=== PATIENT | male | born 1960 | race Caucasian/White ===

== ENCOUNTER 2017-11-14 09:30 | Inpatient (IN) | payer OTHER ==
[~2017-11-14] VITALS: Ht 172.7 cm; Wt 77.1 kg
[2017-11-14] MEDS ORDERED: HYDROCHLOROTHIA25 MG PO (11:08)
[2017-11-14] MEDS ORDERED: OMEPRAZOLE20 M1 PO (11:08)
[2017-11-14] MEDS ORDERED: ENALAPRIL MALEA20 MG PO (11:08)
[2017-11-14] MEDS ORDERED: SIMVASTATIN20 MG PO (11:08)
[2017-11-14] MEDS ORDERED: FENOFIBRATE134 MG PO (11:09)
[2017-11-14] MEDS ORDERED: ZANTAC300 MG PO (11:09)
[2017-11-14] MEDS ORDERED: SULINDAC200 MG PO (11:09)
[2017-11-14] MEDS ORDERED: CHLORZOXAZONE PO (11:10)
[2017-11-14] MEDS ORDERED: PROZAC20 MG PO (11:10)
[2017-11-14] MEDS ORDERED: ELAVIL PO (11:11)
[2017-11-23] MEDS ORDERED: OMEPRAZOLE20 MG PO (17:00)
[2017-11-23] MEDS ORDERED: TRAMADOL HCL50 MG PO (17:00)
[2017-11-23] MEDS ORDERED: PROBIOTIC & AC1 EACH PO (17:00)
[2017-11-23] MEDS ORDERED: TYLENOL ARTHRI650 MG PO (17:00)
== END 2017-11-23 17:16 | disposition home or self-care (01) | DRG 331 ==
LOC: O/R 11-21 05:38 → SURG 11-21 05:38 → SURH 11-21 07:00 → SURG 11-21 10:24
PROVIDERS: Surgery
PROC: 0DJD8ZZ Inspection of Lower Intestinal Tract, Via Natural or Artificial Opening Endoscopic (ICD-10-PCS; 2017-11-21)
PROC: 0DTE4ZZ Resection of Large Intestine, Percutaneous Endoscopic Approach (ICD-10-PCS; principal; 2017-11-21 07:00)
DX: K57.32 Diverticulitis of large intestine without perforation or abscess without bleeding (principal); I10 Essential (primary) hypertension; K21.9 Gastro-esophageal reflux disease without esophagitis; F41.8 Other specified anxiety disorders

== ENCOUNTER 2018-12-03 06:58 | Day surgery (SDC) | payer OTHER ==
[~2018-12-03 06:58] MED LIST: CHLORZOXAZONE PO; ELAVIL PO; ENALAPRIL MALEA20 MG PO; FENOFIBRATE134 MG PO; HYDROCHLOROTHIA25 MG PO; OMEPRAZOLE20 M1 PO; OMEPRAZOLE20 MG PO; PROBIOTIC & AC1 EACH PO; PROZAC20 MG PO; SIMVASTATIN20 MG PO; SULINDAC200 MG PO; TRAMADOL HCL50 MG PO; TYLENOL ARTHRI650 MG PO; ZANTAC300 MG PO
== END 2018-12-03 10:00 | disposition home or self-care (01) ==
LOC: AMB-ENDOS 06:58
DX: K57.32 Diverticulitis of large intestine without perforation or abscess without bleeding (principal)